=== PATIENT | female | born 2000 | race African-American/Black ===

== ENCOUNTER 2024-06-26 17:23 | Emergency (ER) | payer OTHER, SELFPAY ==
[2024-06-26 17:41] VITALS: BP 125/64; PULSE 83; RESP 20; TEMP 37.1; O2SAT 100
--- NOTE | 2024-06-26 17:55 | ED.FEMALEGU ---
HPI - Female Genitourinary General Chief complaint: Urogenital-Female Stated complaint: STD Time Seen by Provider: 06/26/24 17:55 Source: patient, RN notes reviewed and old records reviewed Mode of arrival: ambulatory Limitations: no limitations History of Present Illness HPI Narrative: 24-year-old female presents to the [facility] with concerns for an STD. Patient states 1 week ago she started with some itching, burning, has used Monistat with a little bit a relief. Reports that her boyfriend went to the emergency room today, is still awaiting results of chlamydia and gonorrhea, was suggested that she get tested too. Denies chances of , has a [employer] Home Medications Medication Instructions Recorded Confirmed bupropion HCl 300 mg 24 hr tablet, mg PO 06/26/24 extended release ibuprofen 800 mg tablet mg 06/26/24 montelukast 5 mg chewable tablet mg 06/26/24 Allergies Allergy/AdvReac Type Severity Reaction Status Date / Time ketorolac [From Toradol] Allergy Unknown Verified 06/26/24 18:06 Review of Systems Review of Systems: All systems reviewed & are unremarkable except as noted in HPI and below Constitutional: Constitutional: Reports no additional constitutional complaints Eyes: Eyes: Reports no additional eye complaints ENT: Reports system reviewed and no additional complaints, except as documented Cardiovascular: Cardiovascular: Reports no additional cardiovascular complaints, Denies chest pain and Denies dyspnea Respiratory: Respiratory: Reports no additional respiratory complaints, Denies chest congestion, Denies cough and Denies dyspnea Gastrointestinal: Gastrointestinal: Reports no additional gastrointestinal complaints, Denies abdominal pain, Denies nausea and Denies vomiting Genitourinary: Genitourinary: Reports as per HPI Musculoskeletal: Musculoskeletal: Reports no additional musculoskeletal complaints Integumentary/Breasts: Skin/Breast: Reports system reviewed and no additional complaints, except as docu Neurologic: Reports system reviewed and no additional complaints, except as documented Psychiatric: Psychiatric: Reports no additional psychiatric complaints Allergic/Immunologic: Allergic/Immunologic: Reports no additional allergic/immunologic complaints PMFSH Past Medical History Medical History (Updated 06/27/24 @ 08:03 by Delfina Wilks APRN) Anxiety and depression Comments At the time of my signature, I reviewed and agree with the nursing past medical, surgical, social, and family history. There is no relevant family history pertinent to the patient complaint. Exam Const: General: cooperative, healthy appearing, comfortable, no acute distress, well developed, alert and well nourished Nutritional Appearance: well nourished Orientation/consciousness: patient oriented x3 Limitations: no limitations HENMT: Head: normal to inspection Ears: hearing grossly normal bilaterally and external ears normal Face/Nose/Sinus: Normal external nose present, Normal nares present, Normal nasal mucous membranes and turbinates present, normal facial exam and face symmetric Face and sinus: normal facial exam and face symmetric Eyes: General: appearance normal, both eyes and all related structures Alignment and Position: alignment normal Periorbital: periorbital findings normal Neck: Neck: normal visual inspection, full ROM, no lymphadenopathy and no meningeal signs Chest: Chest palpation & inspection: normal inspection of the chest Resp: Effort & Inspection: normal respiratory effort and able to speak in complete sentences Cardio: Rate: regular rate : External Female Exam: normal external appearance Speculum Exam - Vagina: abnormal vaginal discharge white, malodorous and yellow Speculum Exam - Cervix: normal appearance of the cervix Other: Chaperoned by Ariana RN Skin: General skin exam: normal color and no rashes or lesions noted Lesions: no lesions [place]
[2024-06-26 18:02] LABS: EDUAAPPEAR Clear; EDUABILI Negative; EDUABLOOD Negative; EDUACOLOR1 Yellow; EDUAGLUCOSE Negative; EDUAKETONE Negative; EDUALEUKO Negative; EDUANITRATE Negative; EDUAPH 5.5; EDUAPROTEIN Negative; EDUAUROBILI 0.2
[2024-06-27 21:22] LABS: Trichomonas Vag PCR NOT DETECTED (NOT DETECTE)
[2024-06-27 21:45] LABS: Chlamydia trachomatis NOT DETECTED (NOT DETECTE); Neisseria gonorrhoeae PCR NOT DETECTED (NOT DETECTE)
[2024-06-29 14:38] LABS: Bacterial Vaginosis NEGATIVE (NEGATIVE)
== END 2024-06-26 18:26 | disposition home or self-care (01) ==
PROVIDERS: Emergency Provider Nurse Practitioner; PCP Registered Nurse
DX: N76.0 Acute vaginitis (principal); Z11.3 Encounter for screening for infections with a predominantly sexual mode of transmission; F41.9 Anxiety disorder, unspecified; F32.A Depression, unspecified
CPT/HCPCS: 81003; 81513; 87070; 87491; 87591; 87661; 99213; G0463